=== PATIENT | male | born 1955 | race Caucasian/White ===

== ENCOUNTER 2022-10-08 06:18 | Day surgery (SDC) | payer MEDICARE, BC, SELFPAY ==
[2022-10-08] VITALS (12 sets, daily range): BP systolic 91–152; BP diastolic 47–82; PULSE 42–58; RESP 12–16; TEMP 36.2–36.6; O2SAT 97–100; BMI 30.1
[2022-10-08] MEDS: LACTATED RINGERS 1000 ML 1,000 ML 100 ML IV (07:01)
[2022-10-08] MEDS: SODIUM CHLORIDE 0.9 % (FLUSH) 10 ML SYRINGE IVF (07:02)
--- NOTE | 2022-10-08 07:47 | W.ANESCHARGE ---
Anesthesia Charges Start Date/Time Anesthesia Start Date: 10/08/22 Anesthesia Start Time: 07:50 Stop Date/Time Anesthesia Stop Date: 10/08/22 Anesthesia Stop Time: 08:38
[2022-10-08] MEDS: CEFAZOLIN 2 GM INJ IVP (07:58)
--- NOTE | 2022-10-08 08:27 | PM.ORPRC ---
Procedure Note Date of procedure: 10/08/22 Procedure: PREOPERATIVE DIAGNOSIS: Right knee medial meniscus tear POSTOPERATIVE DIAGNOSIS: Right knee medial meniscus tear NAME OF OPERATION: Right knee arthroscopic partial medial meniscectomy SURGEON: David Martin MD EMERGENCY ROOM PHYSICIAN: ASHANTI Marie ANESTHESIA: Spinal ESTIMATED BLOOD LOSS: 0 mL COMPLICATIONS: None SPECIMENS: None DRAINS: None PREOPERATIVE ANTIBIOTICS: Ancef 2 gram INDICATIONS: The patient is a 67-year-old with a history of right knee medial pain. MRI scan is consistent with a medial meniscus tear. Despite appropriate nonoperative management, including activity modification, antiinflammatories, [id number] pain medication, bracing, physical therapy, and injections they continue to have pain and disability. Operative intervention was offered. The risks, benefits and expected outcomes were discussed in detail. These included but were not limited to: Infection, bleeding, injury to blood vessel or nerve, venous thromboembolism. All questions were answered to their satisfaction. PROCEDURE: Spinal anesthesia was administered. The patient was placed supine on the operating room table. The right lower extremity was prepped and draped in the usual sterile fashion. The limb was exsanguinated with the Dre bandage. The pneumatic tourniquet was inflated to 300 mmHg. A standard anterolateral portal was established. The arthroscope was introduced. The working portal was established anteromedially. Diagnostic arthroscopy was performed with findings as follows: The suprapatellar pouch is normal. Articular surface on the patella shows a small, focal area of grade 2/3 change on the far medial border. Articular surface on the trochlea is normal. The medial gutter is normal. The medial compartment shows diffuse grade 3 change on the medial femoral condyle, grade 2 change on the medial tibial plateau. The medial meniscus has a complex degenerative tear of the posterior horn, into the midbody. This primarily consists of horizontal cleavage tearing of the undersurface of the posterior horn with a small radial tear and an unstable flap flipped under the midbody. The notch shows the ACL to be intact. The lateral compartment shows normal articular cartilage on the lateral femoral condyle and lateral tibial plateau. The lateral meniscus is normal. The lateral gutter is normal. The leading edge of the posterior horn of the medial meniscus was debrided with the basket. The undersurface of the posterior horn and midbody were debrided with the shaver through the anteromedial portal. Unstable chondral flaps on the medial femoral condyle and patella were debrided with the shaver. Arthroscopic instruments were removed, the portal sites were Steri-Stripped closed, the knee was infiltrated with 30 mL of 0.25% Marcaine without epinephrine. A dry dressing was applied, the tourniquet was released. Sponge and needle counts were correct x 2. The patient tolerated the procedure well. There were no apparent complications. They were carefully transferred to the hospital bed and taken to the postanesthesia care unit in satisfactory condition. PLAN: The patient will be discharged to home. They may weightbear as tolerates. Range of motion will be unrestricted. They will follow up in the office next week for a wound check.
[2022-10-08] MEDS: BUPIVACAINE 0.25% 30 ML INJECTION (08:28)
--- NOTE | 2022-10-08 08:36 | W.ANESCHARGE ---
Anesthesia Charges Start Date/Time Anesthesia Start Date: 10/08/22 Anesthesia Start Time: 07:50 Stop Date/Time Anesthesia Stop Date: 10/08/22 Anesthesia Stop Time: 08:38
[2022-10-08] MEDS: ACETAMINOPHEN 325 MG TABLET 650 MG PO (10:12)
--- NOTE | 2022-10-08 10:20 | SUR.PHASEII ---
pt was requesting something for pain to stay ahead of it. See EMAR.
== END 2022-10-08 10:20 | disposition home or self-care (01) ==
PROVIDERS: Visit Provider Orthopaedic Surgery
PROC: (CPT 29870; principal; 2022-10-08 07:30)
DX: M23.221 Derangement of posterior horn of medial meniscus due to old tear or injury, right knee (principal)
CPT/HCPCS: 29881; 01400; A9270; J0665; J0690; J1885; J2250; J2405; J2704; J3010; J7120